=== PATIENT | female | born 1975 | race Caucasian/White ===

== ENCOUNTER 2018-04-03 16:39 | Inpatient (IN) | payer OTHER ==
[~2018-04-03] VITALS: Ht 167.6 cm; Wt 86.2 kg
[~2018-04-03 16:39] MED LIST: AUG875 PO; FOLI-43 PO; LEVO50TA77 PO; NORCO5 PO; SEVE800T8 PO; [UNRECOGNIZED DRUG - OTHER]
[2018-04-03] MEDS ORDERED: NACL 0.9% 1,000 ML IV ONE (16:45)
[2018-04-03 17:18] LABS: HEMOGLOBIN 13.9 g/dL (12.0-16.0); PLATELET COUNT (AUTO) 434 K/uL (130-430)
[2018-04-03 17:23] LABS: HEMATOCRIT 41.9 % (36-48); MEAN CORPUSCULAR HEMOGLOBIN 33 pg (27-31); MEAN CORPUSCULAR HGB CONC 33 % (32-36); MEAN CORPUSCULAR VOLUME 98 fL (79.0-98.0); RED BLOOD CELL COUNT(AUTO) 4.27 MIL/uL (4.2-6.2); RED CELL DISTRIBUTION WIDTH 13.3 % (9.0-15.0); WHITE BLOOD COUNT (AUTO) 16.2 K/uL (4.8-10.8)
[2018-04-03 17:26] LABS: CALCIUM 10.4 mg/dL (8.4-11.0); CREATININE 1.52 mg/dL (0.55-1.30)
[2018-04-03 17:29] LABS: PROTHROMBIN TIME 10.3 SECS (9.5-12.5)
[2018-04-03] MEDS ORDERED: fentaNYL CITRATE/PF 100 MCG/2 ML AMP IVP ONE (17:30)
[2018-04-03] MEDS ORDERED: ONDANSETRON HCL 4 MG/2 ML VIAL IVP ONE (17:30)
[2018-04-03 17:31] LABS: ALBUMIN 3.6 g/dL (3.4-4.8); TOTAL BILIRUBIN 0.3 mg/dL (0.0-1.0)
[2018-04-03 18:14] LABS: BASOPHILS % (MANUAL) 0 % (0-2); EOSINOPHILS % (MANUAL) 3 % (0-7); LYMPHOCYTES % (MANUAL) 23 % (20-46); MONOCYTES % (MANUAL) 12 % (0-11)
[2018-04-03] MEDS ORDERED: methylPREDNISolone SOD SUCC/PF 62.5 MG/ML VIAL IVP ONE (18:15)
[2018-04-03] MEDS ORDERED: VITA1CAP PO (18:29)
[2018-04-03] MEDS ORDERED: CITA10SO6 PO (18:29)
[2018-04-03] MEDS ORDERED: SOLI40 INJ (18:29)
[2018-04-03] MEDS ORDERED: GABA-529 PO (18:29)
[2018-04-03] MEDS ORDERED: METO25TA6 PO (18:29)
[2018-04-03] MEDS ORDERED: ASPI81TA2 PO (18:29)
[2018-04-03] MEDS ORDERED: TACR0.5C PO (18:29)
[2018-04-03] MEDS ORDERED: MAGN100T3 PO (18:29)
[2018-04-03] MEDS ORDERED: OMEP20CA10 PO (18:29)
[2018-04-03] MEDS ORDERED: ONDANSETRON HCL 4 MG/2 ML VIAL IM PRN (18:30)
[2018-04-03 18:40] LABS: BILIRUBIN,URINE NEGATIVE (NEGATIVE); BLOOD, URINE NEGATIVE (NEGATIVE); CLARITY/URINE CLEAR (CLEAR); COLOR,URINE YELLOW (YELLOW); GLUCOSE,URINE NEGATIVE (NEGATIVE); KETONES,URINE TRACE (NEGATIVE); LEUKOCYTE ESTERASE ,URINE TRACE (NEGATIVE); NITRITE, URINE NEGATIVE (NEGATIVE); PROTEIN URINE 1+ (NEGATIVE); UROBILINOGEN,URINE 0.2 (0.2-1.0)
[2018-04-03 18:55] LABS: BACTERIA,URINE RARE /HPF (None Seen); RBC,URINE 0-3 /HPF (0-3); WBC,URINE 0-3 /HPF (0-3)
[2018-04-03] MEDS ORDERED: LORazepam 2 MG/ML VIAL (FOR ER USE) IVP ONE (19:00)
[2018-04-03] MEDS ORDERED: LEVOTHYROXINE SODIUM 0.05 MG TABLET PO ONE (19:00)
[2018-04-03 19:21] VITALS: BP_SYST 141
[2018-04-03] MEDS: GABAPENTIN 100 MG CAPSULE PO SCH (21:44)
[2018-04-03] MEDS: METOPROLOL TARTRATE 25 MG TABLET PO SCH (21:44)
[2018-04-03] MEDS: ACETAMINOPHEN 325 MG TABLET PO PRN (21:45)
[2018-04-03] MEDS: cefTRIAXone 1 GM in D5W 50 ML IV SCH (21:45)
[2018-04-03] MEDS: NACL 0.9% 1,000 ML IV SCH (21:46)
[2018-04-04] MEDS: MORPHINE 4 MG/ML INJ. SYRINGE IVP PRN ×4 (00:19→20:38)
[2018-04-04 01:07] VITALS: BP_SYST 119
[2018-04-04] MEDS: LEVOTHYROXINE SODIUM 0.05 MG TABLET PO SCH (06:09)
[2018-04-04 07:28] LABS: BASOPHILS # (AUTO) 0.1 K/uL (0.0-0.2); BASOPHILS % (AUTO) 0.7 % (0.0-2.0); HEMATOCRIT 40.1 % (36-48); HEMOGLOBIN 13.4 g/dL (12.0-16.0); LYMPHOCYTES # (AUTO) 1.2 K/uL (1.0-5.5); LYMPHOCYTES % (AUTO) 6.5 % (20.5-51.5); MEAN CORPUSCULAR HEMOGLOBIN 33 pg (27-31); MEAN CORPUSCULAR HGB CONC 33 % (32-36); MEAN CORPUSCULAR VOLUME 99 fL (79.0-98.0); MONOCYTES % (AUTO) 0.1 % (1.7-9.3); NEUTROPHILS # (AUTO) 16.7 K/uL (1.8-7.7); NEUTROPHILS % (AUTO) 92.7 % (40.0-70.0); PLATELET COUNT (AUTO) 421 K/uL (130-430); RED BLOOD CELL COUNT(AUTO) 4.05 MIL/uL (4.2-6.2); RED CELL DISTRIBUTION WIDTH 13.1 % (9.0-15.0)
[2018-04-04 07:37] LABS: ALBUMIN 3.2 g/dL (3.4-4.8); CREATININE 1.43 mg/dL (0.55-1.30); POTASSIUM 4.3 mmol/L (3.5-5.1); TOTAL BILIRUBIN 0.3 mg/dL (0.0-1.0)
[2018-04-04 07:50] VITALS: BP_SYST 131
[2018-04-04] MEDS: ACETAMINOPHEN 325 MG TABLET PO PRN ×2 (08:36→23:11)
[2018-04-04] MEDS: PANTOPRAZOLE SODIUM 40 MG/VIAL (PROTONIX) IVP SCH (08:37)
[2018-04-04] MEDS: GABAPENTIN 100 MG CAPSULE PO SCH ×2 (08:37→20:39)
[2018-04-04] MEDS: ASPIRIN 81 MG TAB.CHEW PO SCH (08:37)
[2018-04-04] MEDS: methylPREDNISolone SOD SUCC 40 MG/ML VIAL IVP SCH (08:37)
[2018-04-04] MEDS: METOPROLOL TARTRATE 25 MG TABLET PO SCH ×2 (08:38→20:40)
[2018-04-04 08:39] LABS: ERYTHROCYTE SEDIMENTATION RATE 13 MM/HR (0-20)
[2018-04-04] MEDS: NACL 0.9% 1,000 ML IV SCH ×2 (08:41→18:09)
[2018-04-04] MEDS: TACROLIMUS ANHYDROUS 0.5 MG CAPSULE (PROGRAF) PO SCH (08:41)
[2018-04-04 11:26] VITALS: BP_SYST 136
[2018-04-04 16:14] VITALS: BP_SYST 142
[2018-04-04] MEDS: cefTRIAXone 1 GM in D5W 50 ML IV SCH (18:09)
[2018-04-04] MEDS ORDERED: VALPROATE SODIUM 1,000 MG in NS 100 ML IV ONE ×2 (19:30→21:00)
[2018-04-04] MEDS: AMITRIPTYLINE HCL 25 MG TABLET (ELAVIL) PO SCH (20:38)
[2018-04-04] MEDS ORDERED: VALPROATE SODIUM 100 MG/ML VIAL (DEPACON) IV ONE (21:51)
[2018-04-04] MEDS: SUMAtriptan SUCCINATE 50 MG TABLET PO PRN (23:11)
[2018-04-05] MEDS: MORPHINE 4 MG/ML INJ. SYRINGE IVP PRN ×6 (00:16→22:59)
[2018-04-05 01:22] VITALS: BP_SYST 129
[2018-04-05] MEDS: NACL 0.9% 1,000 ML IV SCH ×3 (05:42→22:10)
[2018-04-05 06:58] LABS: HCG,QUAL RESULT NEGATIVE (NEGATIVE)
[2018-04-05] MEDS: LEVOTHYROXINE SODIUM 0.05 MG TABLET PO SCH (07:00)
[2018-04-05] MEDS: fentaNYL CITRATE/PF 100 MCG/2 ML AMP ONE ×4 (07:08→07:55)
[2018-04-05] MEDS: MIDAZOLAM HCL 5 MG/5 ML VIAL ONE ×4 (07:09→07:53)
[2018-04-05 07:24] LABS: PROTHROMBIN TIME 10.3 SECS (9.5-12.5)
[2018-04-05] MEDS ORDERED: SIMETHICONE 40 MG/0.6 ML ML ONE (07:34)
[2018-04-05 08:00] VITALS: BP_SYST 148
[2018-04-05] MEDS: methylPREDNISolone SOD SUCC 40 MG/ML VIAL IVP SCH (08:44)
[2018-04-05] MEDS: TACROLIMUS ANHYDROUS 0.5 MG CAPSULE (PROGRAF) PO SCH (08:44)
[2018-04-05] MEDS: GABAPENTIN 100 MG CAPSULE PO SCH ×2 (08:44→22:03)
[2018-04-05] MEDS: PANTOPRAZOLE SODIUM 40 MG/VIAL (PROTONIX) IVP SCH (08:45)
[2018-04-05] MEDS: ASPIRIN 81 MG TAB.CHEW PO SCH (08:48)
[2018-04-05] MEDS: METOPROLOL TARTRATE 25 MG TABLET PO SCH ×2 (10:21→21:00)
[2018-04-05] MEDS ORDERED: LIDOCAINE 1%, 20 ML MDV 20 ML ONE (11:50)
[2018-04-05 12:40] VITALS: BP_SYST 154
[2018-04-05] MEDS: SUMAtriptan SUCCINATE 50 MG TABLET PO PRN (12:46)
[2018-04-05 13:04] LABS: CSF GLUCOSE 72 mg/dL (40-70)
[2018-04-05 13:22] LABS: CSF APPEARANCE CLEAR (CLEAR); CSF COLOR COLORLESS (COLORLESS); CSF RED BLOOD CELL COUNT 0 /uL (0-0); CSF TUBE NUMBER 3
[2018-04-05 13:23] LABS: CSF PROTEIN 38 mg/dL (15-45); CSF WHITE BLOOD CELL COUNT 2 /uL (0-5)
[2018-04-05] MEDS ORDERED: hydrALAZINE HCL 20 MG/ML VIAL IVP PRN (17:00)
[2018-04-05 17:40] VITALS: BP_SYST 177
[2018-04-05] MEDS: cefTRIAXone 1 GM in D5W 50 ML IV SCH (18:03)
[2018-04-05 19:50] VITALS: BP_SYST 132
[2018-04-05] MEDS: AMITRIPTYLINE HCL 25 MG TABLET (ELAVIL) PO SCH (22:03)
[2018-04-06 00:58] VITALS: BP_SYST 150
[2018-04-06] MEDS: MORPHINE 4 MG/ML INJ. SYRINGE IVP PRN ×6 (01:55→23:08)
[2018-04-06 05:20] VITALS: BP_SYST 135
[2018-04-06 06:54] LABS: BASOPHILS # (AUTO) 0.2 K/uL (0.0-0.2); EOSINOPHILS % (AUTO) 0.1 % (0.0-4.0); HEMATOCRIT 38.8 % (36-48); HEMOGLOBIN 13.1 g/dL (12.0-16.0); LYMPHOCYTES # (AUTO) 3.2 K/uL (1.0-5.5); LYMPHOCYTES % (AUTO) 15.2 % (20.5-51.5); MEAN CORPUSCULAR HEMOGLOBIN 33 pg (27-31); MEAN CORPUSCULAR HGB CONC 34 % (32-36); MEAN CORPUSCULAR VOLUME 99 fL (79.0-98.0); MONOCYTES # (AUTO) 1.6 K/uL (0.0-1.0); MONOCYTES % (AUTO) 7.8 % (1.7-9.3); NEUTROPHILS # (AUTO) 16.1 K/uL (1.8-7.7); NEUTROPHILS % (AUTO) 75.9 % (40.0-70.0); PLATELET COUNT (AUTO) 366 K/uL (130-430); RED BLOOD CELL COUNT(AUTO) 3.94 MIL/uL (4.2-6.2); RED CELL DISTRIBUTION WIDTH 12.8 % (9.0-15.0); WHITE BLOOD COUNT (AUTO) 21.1 K/uL (4.8-10.8)
[2018-04-06 07:07] LABS: CALCIUM 9.9 mg/dL (8.4-11.0); CREATININE 1.27 mg/dL (0.55-1.30); POTASSIUM 3.5 mmol/L (3.5-5.1)
[2018-04-06] MEDS: LEVOTHYROXINE SODIUM 0.05 MG TABLET PO SCH (07:56)
[2018-04-06] MEDS: NACL 0.9% 1,000 ML IV SCH ×2 (07:57→18:15)
[2018-04-06 08:13] VITALS: BP_SYST 134
[2018-04-06] MEDS: METOPROLOL TARTRATE 25 MG TABLET PO SCH ×3 (09:00→19:40)
[2018-04-06] MEDS: PANTOPRAZOLE SODIUM 40 MG/VIAL (PROTONIX) IVP SCH (09:01)
[2018-04-06] MEDS: methylPREDNISolone SOD SUCC 40 MG/ML VIAL IVP SCH (09:01)
[2018-04-06] MEDS: GABAPENTIN 100 MG CAPSULE PO SCH ×2 (09:01→19:39)
[2018-04-06] MEDS: ASPIRIN 81 MG TAB.CHEW PO SCH (09:02)
[2018-04-06] MEDS: TACROLIMUS ANHYDROUS 0.5 MG CAPSULE (PROGRAF) PO SCH (10:36)
[2018-04-06 12:09] LABS: EBV AB VCA, IgM <36.0 U/mL (0.0-35.9); HSV 2 IgG, TYPE SPECIFIC <0.91 index (0.00-0.90)
[2018-04-06 12:30] VITALS: BP_SYST 139
[2018-04-06 16:30] VITALS: BP_SYST 149
[2018-04-06] MEDS: cefTRIAXone 1 GM in D5W 50 ML IV SCH (18:15)
[2018-04-06 20:00] VITALS: BP_SYST 150
[2018-04-06] MEDS ORDERED: AMITRIPTYLINE HCL 25 MG TABLET (ELAVIL) PO SCH (21:00)
[2018-04-07 00:25] VITALS: BP_SYST 150
[2018-04-07] MEDS: NACL 0.9% 1,000 ML IV SCH (04:31)
[2018-04-07] MEDS: MORPHINE 4 MG/ML INJ. SYRINGE IVP PRN (04:32)
[2018-04-07 05:12] LABS: CMV, IgM <30.0 AU/mL (0.0-29.9)
[2018-04-07 07:46] LABS: EBV AB VCA, IgG >600.0 U/mL (0.0-17.9); HSV 1 IgG, TYPE SPECIFIC >62.20 index (0.00-0.90)
[2018-04-07 08:00] VITALS: BP_SYST 140
[2018-04-07] MEDS: PANTOPRAZOLE SODIUM 40 MG/VIAL (PROTONIX) IVP SCH (09:17)
[2018-04-07] MEDS: ASPIRIN 81 MG TAB.CHEW PO SCH (09:17)
[2018-04-07] MEDS: methylPREDNISolone SOD SUCC 40 MG/ML VIAL IVP SCH (09:17)
[2018-04-07] MEDS: GABAPENTIN 100 MG CAPSULE PO SCH (09:18)
[2018-04-07] MEDS: LEVOTHYROXINE SODIUM 0.05 MG TABLET PO SCH (09:18)
[2018-04-07] MEDS: METOPROLOL TARTRATE 25 MG TABLET PO SCH (09:18)
[2018-04-07] MEDS: TACROLIMUS ANHYDROUS 0.5 MG CAPSULE (PROGRAF) PO SCH (09:22)
[2018-04-07] MEDS ORDERED: IMI50 PO (10:28)
[2018-04-07] MEDS ORDERED: PRO40 PO (10:28)
[2018-04-07] MEDS ORDERED: ONDA4TAB5 PO (10:29)
[2018-04-07 10:52] VITALS: BP_SYST 127
[2018-04-07 12:19] VITALS: BP_SYST 120
== END 2018-04-07 12:00 | disposition home or self-care (01) | DRG 683 ==
LOC: SED 16:39 → SMU 18:21
PROVIDERS: ADMIT Internal Medicine; ATTEND Internal Medicine
PROC: 0DB98ZX Excision of Duodenum, Via Natural or Artificial Opening Endoscopic, Diagnostic (ICD-10-PCS; 2018-04-05)
PROC: 0DB68ZX Excision of Stomach, Via Natural or Artificial Opening Endoscopic, Diagnostic (ICD-10-PCS; principal; 2018-04-05 07:00)
DX: N17.9 Acute kidney failure, unspecified (principal); Z94.0 Kidney transplant status; K31.84 Gastroparesis; K29.70 Gastritis, unspecified, without bleeding; G43.109 Migraine with aura, not intractable, without status migrainosus; E03.9 Hypothyroidism, unspecified; I10 Essential (primary) hypertension; K20.9 Esophagitis, unspecified; B34.9 Viral infection, unspecified; T38.0X5A Adverse effect of glucocorticoids and synthetic analogues, initial encounter; Z87.441 Personal history of nephrotic syndrome; Z90.81 Acquired absence of spleen; Z79.82 Long term (current) use of aspirin; Z79.899 Other long term (current) drug therapy
CPT/HCPCS: 36415; 43239; 62270; 70220-TC; 70551; 71045; 80048; 80053; 81000-TC; 82947-TC; 83605; 84157-TC; 84484; 84703; 85007; 85025; 85027; 85048; 85610-TC; 85651-TC; 85730-TC; 86635; 86644; 86645; 86665; 86695; 86696; 86788; 86789; 87040-TC; 87045-TC; 87046; 87070-TC; 87081; 87086; 87177; 87205-TC; 87899; 88305; 88312; 88313; 89051-TC; 93005; 93880; 96361; 96374; 96375; 99285; C9113; J0360; J0696; J1030; J2001; J2060; J2250; J2270; J2405; J2930; J3010; J7030; J7060; J7507

== ENCOUNTER 2024-02-16 10:00 | Emergency (ER) | payer OTHER ==
[~2024-02-16] VITALS: Ht 170.2 cm; Wt 86.2 kg
[~2024-02-16 10:00] MED LIST changes: +ASPI-1155 PO; -AUG875 PO; -FOLI-43 PO; +GABA-529 PO; +IMI50 PO; -LEVO50TA77 PO; +METO25TA6 PO; -NORCO5 PO; +ONDA4TAB5 PO; +PRO40 PO; -SEVE800T8 PO; +SYN50 PO; +TACR0.5C PO; +VITA1CAP PO; -[UNRECOGNIZED DRUG - OTHER]
[2024-02-16 10:10] VITALS: BP_SYST 199; PULSE 65; RESP 18; TEMP 96.8; O2SAT 97
[2024-02-16] MEDS: METOCLOPRAMIDE HCL 10 MG/2 ML VIAL IVP ONE (10:50)
[2024-02-16 10:58] LABS: BASOPHILS # (AUTO) 0.1 K/uL (0.0-0.2); EOSINOPHILS # (AUTO) 0.3 K/uL (0.0-0.4); EOSINOPHILS % (AUTO) 2.6 % (0.0-4.0); HEMATOCRIT 36.7 % (36-48); LYMPHOCYTES # (AUTO) 2.6 K/uL (1.0-5.5); LYMPHOCYTES % (AUTO) 20.5 % (20.5-51.5); MEAN CORPUSCULAR HEMOGLOBIN 29 pg (27-31); MEAN CORPUSCULAR HGB CONC 33 % (32-36); MEAN CORPUSCULAR VOLUME 89 fL (79.0-98.0); MONOCYTES # (AUTO) 0.9 K/uL (0.0-1.0); MONOCYTES % (AUTO) 7.5 % (1.7-9.3); NEUTROPHILS # (AUTO) 8.6 K/uL (1.8-7.7); NEUTROPHILS % (AUTO) 68.4 % (40.0-70.0); PLATELET COUNT (AUTO) 409 K/uL (130-430); RED BLOOD CELL COUNT(AUTO) 4.11 MIL/uL (4.2-6.2); RED CELL DISTRIBUTION WIDTH 18.1 % (9.0-15.0); WHITE BLOOD COUNT (AUTO) 12.6 K/uL (4.8-10.8)
[2024-02-16] MEDS: DIPHENHYDRAMINE INJ 50 MG/ML VIAL IVP ONE (11:07)
[2024-02-16 11:13] LABS: INR 0.9 (0.8-1.2); PROTHROMBIN TIME 9.3 SECS (9.5-12.5)
[2024-02-16 11:15] LABS: ANION GAP 10 (5-15); CALCIUM 10.1 mg/dL (8.4-11.0); CARBON DIOXIDE 24 mmol/L (23-29); CHLORIDE 103 mmol/L (98-107); CREATININE 3.34 mg/dL (0.55-1.30); GFR AFRICAN AMERICAN 19 mL/min (>90); GFR NON AFRICAN-AMERICAN 16 mL/min (>90); GLUCOSE 108 mg/dL (74-106); POTASSIUM 3.5 mmol/L (3.5-5.1); SODIUM SERUM 137 mmol/L (136-145); UREA NITROGEN, BLOOD 52 mg/dL (8-21)
[2024-02-16] MEDS: hydrALAZINE HCL 20 MG/ML VIAL IVP ONE (12:12)
[2024-02-16] MEDS: NACL 0.9% 1,000 ML IV ONE (12:13)
[2024-02-16] MEDS ORDERED: ROSU10TA29 PO (13:33)
[2024-02-16] MEDS ORDERED: METO50TA16 PO (13:33)
[2024-02-16] MEDS ORDERED: ALLO100T PO (13:33)
[2024-02-16] MEDS ORDERED: OMEP40CA20 PO (13:33)
[2024-02-16] MEDS ORDERED: TACR1CAP7 PO (13:33)
[2024-02-16] MEDS ORDERED: CITA40TA16 PO (13:33)
[2024-02-16] MEDS ORDERED: METH4TAB17 PO (13:33)
[2024-02-16] MEDS ORDERED: LEVO50TA8 PO (13:33)
[2024-02-16 13:39] LABS: BILIRUBIN,URINE NEGATIVE (NEGATIVE); BLOOD, URINE NEGATIVE (NEGATIVE); CLARITY/URINE CLEAR (CLEAR); COLOR,URINE YELLOW (YELLOW); GLUCOSE,URINE NEGATIVE (NEGATIVE); KETONES,URINE NEGATIVE (NEGATIVE); LEUKOCYTE ESTERASE ,URINE NEGATIVE (NEGATIVE); NITRITE, URINE NEGATIVE (NEGATIVE); PROTEIN URINE 2+ (NEGATIVE); UROBILINOGEN,URINE 0.2 (0.2-1.0)
[2024-02-16 13:50] LABS: BACTERIA,URINE FEW /HPF (None Seen); RBC,URINE 0-3 /HPF (0-3); WBC,URINE 0-3 /HPF (0-3)
[2024-02-16 13:51] LABS: MUCUS,URINE 1+ /LPF (None Seen)
[2024-02-16] MEDS: ACETAMINOPHEN 500 MG TABLET PO ONE (16:11)
[2024-02-16] MEDS ORDERED: ONDA-8 TL (17:05)
[2024-02-16] MEDS ORDERED: HYDR-3927 PO (17:05)
[2024-02-16 17:21] VITALS: BP_SYST 114; PULSE 72; RESP 21; TEMP 97; O2SAT 97
[2024-02-16] MEDS: ONDANSETRON HCL 4 MG/2 ML VIAL IVP ONE (17:25)
[2024-02-16] MEDS: MORPHINE 4 MG INJ. 4 MG/ML VIAL IVP ONE (17:26)
== END 2024-02-16 17:21 | disposition home or self-care (01) ==
LOC: SED 10:00
DX: R51.9 Headache, unspecified (principal); R94.4 Abnormal results of kidney function studies; I10 Essential (primary) hypertension; Z94.0 Kidney transplant status
CPT/HCPCS: 99285; 96374; 96375; 70450; 76770; 96361; 80048; 81000; 81001; 85025; 85610; 84484; 36415; 93005; 81025; 81015; J1200; J0360; J2765; J2405; J2270; J7030